=== PATIENT | male | born 1940 | race Two or more races ===

== ENCOUNTER → 2017-06-18 | Outpatient (CLI) | payer BC, MEDICARE ==
[~2017-06-18] MED LIST: AMLODIPINE BESYL5 MG PO; AVAPRO PO; BENICAR PO; BETAPACE PO; CORDARONE200 M1 PO; COUMADIN PO; CRESTOR10 MG PO; CRESTOR5 MG PO; DARVOCET-N 1001 TAB PO; FLECAINIDE ACE100 MG PO; FLECAINIDE ACET50 MG PO; GLUCOPHAGE500 M1 PO; JANUVIA PO; LIPITOR PO; LOW DOSE ASPIRI81 M1 PO; MAG-OX 400400 M1 PO; MAG-OXIDE400 MG PO; METFORMIN HCL500 M1 PO; METOPROLOL SUCC25 MG PO; ONGLYZA5 MG PO; SOTALOL PO; SOTALOL120 MG PO; UROXATRAL10 MG PO; [UNRECOGNIZED DRUG - REMARK]
--- NOTE | ~2017-06-18 | MR164 ---
[facility] A Service of [facility] RADIOLOGY TEXT RESULTS PATIENT: SARAH ZAIDI Gilberto VIEIRA LOCATION: [facility] : 41 UNIT #: [id number] AGE: [address]: Jonathan Mccabe MD SEX: M ORDER DR: [id number] [facility] [address]. [place], [place] [address] [id number] O MR#: [id number] Acc #: [id number] NAME: SARAH ZAIDI : 1940 SEX: M STUDY DATE/TIME: 06/18/2017 19:06 UNIT: [facility] ROOM: STUDY DESCRIPTION: MR Shoulder Wo Contrast Lt Attending Physician: Jonathan Mccabe M.D. Referring Physician: Jonathan Mccabe M.D. Ordering Physician: Jonathan Mccabe M.D. Primary Care Physician: Chaim Gu M.D. MRI CENTER REPORT This report is preliminary unless electronic signature is present. EXAM MRI of the left shoulder without contrast HISTORY 76-year-old male left shoulder pain for 2 weeks. Hurts to lift up with left arm. No specific injury. Active golfer. FINDINGS Multiplanar, multiecho imaging is performed of the left shoulder utilizing a high field magnet and dedicated protocol. AC joint unremarkable. Marrow signal within the proximal humerus and glenoid unremarkable except for a minimal enthesopathic change at the cuff insertion. Mild lateral down-sloping of the acromion with minimal hypertrophic change undersurface of the acromion. High-grade tendinopathy and developing tear along the footplate insertion of the supraspinatus tendon. This measures about 14 mm AP dimension by about 5 mm [id number] dimension. No tendon retraction. There is some associated subacromial-subdeltoid bursal inflammation. Mild infraspinatus tendinopathy. Teres minor and subscapularis tendons appear intact. No muscle atrophy or edema. Superior labrum demonstrates mild degeneration. The biceps anchor and long tendon of the biceps appears intact. Anterior and posterior labrum unremarkable. Deltoid and extraarticular soft tissues appear normal. Along the anterior muscle belly of the subscapularis tendon at the myotendinous junction, there is a 12 mm multiloculated cystic lesion compatible with a ganglion cyst or peritendinous cyst. Deltoid extraarticular soft tissues unremarkable. IMPRESSION 1. MRI findings compatible with high-grade tendinopathy and developing STS. [facility] A Service of [facility] RADIOLOGY TEXT RESULTS PATIENT: DEJUANSARAH Macias MD LOCATION: [facility] : 41 UNIT #: [id number] AGE: [address]: oJnathan Mccabe MD SEX: M ORDER DR: tear at the distal footplate insertion of the supraspinatus tendon. This measures about 14 mm in length and about 5 mm in width. There is some associated subacromial-subdeltoid bursal inflammation. 2. Mild infraspinatus tendinopathy. 3. 12 mm lobulated cyst muscle belly of the subscapularis probably represents a ganglion cyst or peritendinous cyst. 4. Mild degeneration of the superior labrum but no definitive tear. STAT * RESULT Dictated by... José Miguel Schultz M.D. THIS IS AN ELECTRONICALLY VERIFIED REPORT José Miguel Schultz M.D. at 06/20/2017 4:01 PM RAMY/eliceo TD: 06/19/2017 10:51 JOB #: [id number] MRI CENTER REPORT Page 1 of 1 COPY
== END | disposition home or self-care (01) ==
LOC: CMRI 18:16
DX: M75.102 Unspecified rotator cuff tear or rupture of left shoulder, not specified as traumatic (principal); M25.512 Pain in left shoulder; M75.52 Bursitis of left shoulder; M75.82 Other shoulder lesions, left shoulder; M16.12 Unilateral primary osteoarthritis, left hip; R93.5 Abnormal findings on diagnostic imaging of other abdominal regions, including retroperitoneum
CPT/HCPCS: 73221